=== PATIENT | female | born 1965 | race Caucasian/White ===

== ENCOUNTER 2018-03-27 16:00 | Outpatient (RCR) | payer OTHER, SELFPAY ==
--- NOTE | 2017-12-12 08:59 | HP.OTEVAL ---
Patient's Visit Information STAS VELASCO is a 52 year old F, referred to Occupational Therapy by MARY MOELLER, with a diagnosis of contusion of the L UE hand. Date of Evaluation: Occupational Therapist: Tresa Clifford, OTR/Luisa, CHT - Subjective Subjective: pt. states that she injured thumb at work 07/11/2017 and she never went to the ER for tx.Pt. reports that she used her hand to stop tools from moving at work and heard something snap. Pt. has two thumb braces that do not limit pain when pt. is completing functional tasks. Pt is on light duty at work and does not use L hand at work. - Pain L hand 5 Pain Intensity Range: 5, 6, 7, 8, 9, 10 - Objective Objective/Observation: thumb area is swollen, and OT noted that thumb area in L hand is larger than R hand - ROM MP: 0/32 L, 0/55 R PIP: -7/56 Left IP, -7/60 Right IP ROM Comments: with palpation of valg/marion stress on MP noted slight increase in ulner dev. - Strength [employer] Pl[employer]aker: 36 L, 60 R Lateral Pinch: 8 R, 3 L Tripod Pinch: 10 R, 1 L Strength Comments: pain was an 8 during lateral and tripod pinch - Nine Hole Peg Right: 20 sec. Left: 23 sec. - In-Hand Manipulation Finger to Palm Translation: Mild - Left Palm to Finger Translation: Mild - Left Comments: pt. 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 by completing strengthening exercises and stretches in order to complete BADL's and IADL's. Goal:: Patient will increase ROM in MP joint of L thumb by 10 degrees by completing strengthening and stretching exercises in order to complete BADL's and IADL's. Goal:: Patient will have decreased swelling and report overall decrease in pain of <5 in order to complete BADL's and IADL's. Goal:: Patient will improve lateral and tripod grasps by 5 lbs. by comlething strengthening and stretching exercises in order to complete BADL's and IADL's. Goal:: Patient will demonstrate knowledge and understanding of taping techniques or LR brace for support while performing lift or pinch tasks. - Rehabilitation General Assessment: Pt. presents with contusion of the L UE hand causing pt. to have decreased strength, ROM, increased pain/swelling and decreased ability to complete functional tasks at home and at work. Pt. reports that she is on light duty at work, meaning that she currently is only using her L hand. Today, US completed was completed to decrease pain and circulate blood flow around the thenar eminence and side of the thumb. OT also provided pt. with kinesiotape for stability surrounding the thumb. kinesiotape for stability, 6/10 pain after tx. Patient would benefit from OT services that target strengthening and increasing ROM in L thumb area, MT, and a strong focus on decreasing pain/swelling. Rehabilitation Potential: Good - Anticipated Interventions Anticipated Interventions: A/AAROM/PROM, Strengthening, Triggerpoint Release, Modalities, Orthoses, ADL Training - Visit Plan Frequency: 1-2x /Week Duration: 4 Weeks TEXT: Thank you for the opportunity to evaluate your patient. For Medicare and Medicare HMO plans, please review the plan of care and approve it. It will need to be FAXED BACK to us at [phone] for Medicare purposes. Please let me know if there are questions or concerns regarding this plan of care. Physician Signature: Date:
--- NOTE | 2018-06-03 14:51 | HP.OT.NRP ---
HP - Discharge Summary - Patient Information STAS VLEASCO was seen in my office for initial evaluation on . The following Plan of Care was established for this patient: Initial Frequency: 1-2x /Week Initial Duration: 4 Weeks Plan: PT to schedule FCE - Anticipated Interventions Anticipated Interventions: A/AAROM/PROM, Strengthening, Triggerpoint Release, Modalities, Orthoses, ADL Training This patient was last seen in our office 03/27/18. Pertinent comments regarding their Occupational therapy will appear below: Pt was seen for 15 therapy sessions. pt demo difficulty with thumb ROM and pain with tasks. Therapist challenged pt with work simulated tasks, and pt was advised to cont. using thumb brace as needed at work. pt was to have FCE and return to for further evaluation. At this time pt d/c due to timelapse in services. At this point I will be discontinuing this patient from occupational therapy. I would be happy to see this patient again in the future if found appropriate by the physician. Thank you! Tresa Clifford, OTR/L, CHT
== END 2018-03-27 19:00 | disposition home or self-care (01) ==
LOC: OT 16:00
DX: S60.012D Contusion of left thumb without damage to nail, subsequent encounter (principal)
CPT/HCPCS: 97035; 97110; 97140; 97166; 97530; 97760; 97763

== ENCOUNTER 2018-04-05 07:17 | Outpatient (RCR) | payer OTHER, SELFPAY ==
--- NOTE | 2018-04-05 13:32 | HP.OTFCE_ITS ---
HP OT Functional Capacity Eval - Task Lift Floor (Occasional 1-33% of Day): 20 Floor (Frequent 34-66% of Day): 15 Floor (Constant 67-100% of Day): negligible Floor PDL: Light Knee (Occasional 1-33% of Day): 30 Knee (Frequent 34-66% of Day): 20 Knee (Constant 67-100% of Day): 8 Knee PDL: Light Waist (Occasional 1-33% of Day): 20 Waist (Frequent 34-66% of Day): 15 Waist (Constant 67-100% of Day): negligible Waist PDL: Light Shoulder (Occasional 1-33% of Day): 20 Shoulder (Frequent 34-66% of Day): 15 Shoulder (Constant 67-100% of Day): negligible Shoulder PDL: Light Overhead (Occasional 1-33% of Day): 12.5 Overhead (Frequent 34-66% of Day): 10 Overhead (Constant 67-100% of Day): negligible Overhead PDL: Sedentary Comments: It was confirmed by calling Dr. Renee's office by speaking with nurse, [place], that it was okay to complete 4 hours for a one day functional capacity evaluation as opposed to a two-day functional capacity evaluation despite order saying 2 day evaluation. Completed all lifting tasks with right upper extremity only as per doctor no lifting with left hand. See below for further detials of materials handling tasks. - Work Activity/Posture Bending: Frequent Ability (34-66% of day) Squatting: Frequent Ability (34-66% of day) Kneeling: Occasional Ability (1-33% of day) Reaching out: Frequent Ability (34-66% of day) Reaching up: Frequent Ability (34-66% of day) Sitting: Frequent Ability (34-66% of day) Walking: Frequent Ability (34-66% of day) Standing: Frequent Ability (34-66% of day) - Reference Duration Sedentary Sedentary Light Light Light Medium Medium Medium Heavy Very Heavy Heavy Occasional (0-33% of day) Frequent (34-66% of day) Constant (67-100% of day) 10 # Negligible Negligible 15 # 8 # Negligible 20 # 10# Negli. 35 # 18 # 7 # 50 # 25 # 10 # 75 # 100 # >100 # 38 # 50 # >50 # 15 # 20 # >20 # - Patient Information Height: 1.52 m Weight:: 86.092 kg Hand Dominance: R BP (Medication Use/Usual Values per pt report): No - Medical History Medical History Including Restrictions: She is on light duty at this time for left upper extremity as well as is on a no lifting restirction for left hand. - Diagnoses Diagnoses: Current: Almaz was referred to evaluation due to L thumb contusion on July 11, 2017. She noted that she was examined at work and noted she felt a 'snap'. She noted that she x-ray a week after incidence. X-ray per Pt. report was noted to be bad sprain that was close to break. PMHx: - Symptoms Symptoms: Almaz's main symptoms are pain with edema and throbbing of left thumb. She noted pain is aggravated by cold in which she noted increases throbbing effect. She noted movements with left hand typically increase symptoms. - Pain Pain: Almaz noted that main symptoms she is experiencing left thumb pain with all movements. She noted that he gets cold and will turn purple, will swell regularly, and is painful from left thumb IP to [facility]. She has been attending occupational therapy session with certified hand therapist at [facility]. This therapist has made her splint o help manage pain at work. She uses a splint both at home and at work to promote stability for thumb and pain management while completing fine motor related tasks. She noted that she has two splints provided by therapists one forearm-based thumb spica and the second splint is a hand-based thumb spica. With use of functional pain scale, she rated her pain at 3/10 at beginning of session. As per questionnaire prior to starting therapy she noted pain ranges from 3-8/10 pain. She is not currently on pain medication and is using aleve to manage if needed. Quick Disabilities of Arm, Shoulder, and Hand Questionnaire (DASH): Score: 18 /55= 32% perceived disability of left hand. Connie Pain Questionnaire is a self-report pain assessment to determine a patient?s accurate psychodynamics for accurate pain rating. A score of 30 or high indicates poor psychodynamics and the greater probability of decreased accuracy with accurate pain reporting. . Pre- Connie: 8. Post Connie: 0. Decrease in pain noted between pre and post testing. Fear Avoidance Questionnaire (FAQ) is a client self-report assessment for 18-64+ that has shown to be reliable and valid for determining increased fear with movements. A score of 96 or higher indicates increased fear avoidance behaviors. FAQ Pre-testin. - physical activity subscale: 15. - work subscale: 30. FAQ Post testin. - physical activity subscale: 0. - work subscale: 0. Decrease in pain noted between pre and post testing. - Work History Work History: Almaz has worked at [employer] for approximately 8 years in June 2018. 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 Job description from employer based on job description of ?fastener racker? is worker needs to be able to lift to frequently lifting 25 lbs and occasionally lifting up to 60 lbs. She must occasionally lift 20 lbs above the shoulder and she is to be able to push pull cart that weight of 1800 lbs. She noted that she is currently not completing any lifting tasks as listed due to restrictions and fellow colleagues help with lifting tasks. Thumb injury has been ongoing for about nine months. - Behavioral Behavioral: Almaz was cooperative and participative with all tasks. She appeared to be apprehensive with some tasks as she exhibits hypersensitivity with left thumb and noted just touch or hitting thumb increases pain. - ADLS ADLS: Almaz lives in two story home with six steps to enter and one handrail to right side. She noted that once in home second floor is crafting area with about 20 steps to get to second level. She noted that bedroom and bathroom are all on first floor. She noted that laundry is also on first floor and they do not use basement. She continues to work full-time with splints at [employer] for 8 hour shifts for five days a week. She is still driving and completing daily tasks, cooking, and does help with caring for grandkids on weekends. - Physical Examination Physical Examination: The purpose of this functional capacity evaluation (FCE) which was completed on 04/05/18 was to determine Almaz Ramirez's physical ability. This FCE was performed as part of worker?s compensation to further determine Almaz's ability to complete her current full-time job at [employer]. She currently is on a no lifting restriction with her L thumb limiting the amount of weight and carrying ability for material handling related tasks. Material handling was completed with right upper extremity only at this time and measurements are listed. Aerobic limiting factor: 85% of max adjust HR= (220- age)*.85= 143.65. Calculated max weight: 60% of weight= 113.88 lbs. Resting diagnostics: Heart rate: 73 bpm. Oxygen saturation: 97%. Blood pressure: 157/98 mmHg ROM: Range of Motion testing: Upper extremity: Wrist. -Flexion: R 0-70 , L 0-71. -Extension: R 0-50 ,L 0-48. -Radial deviation: R 0-17 , L 0-16. -Ulnar deviation: R 0-32 , L 0-22. Hand. Thumb. -Radial adduction: R 0-47 , L 0- 37. -CMC opposition: R 0-31 ,L 0-19 - noted increased pulling in thumb. -MP : R -18-0- 65 , L 12- 52 - flexion only with inability to get actively to neut ral. -IP: R -18-0 58 ,L -12-0- 62 Strength: Manual muscle testing completed of the following to determine patient strength needed to complete job ? related tasks: Upper extremity: Shoulder: - Shoulder flexion: R 4+/5, L 4+/5. dynamometer: R 22.1 , L 25.5 lbs. - Shoulder extension: R 4+/5 , L 4+/5. dynamometer: R 14.9 lbs , L 12.5 lbs. - Shoulder Adduction: R 4+/5 , L 4+/5. dynamometer: R 20.4 lbs , L 18.9 lbs. - Shoulder Abduction: R 4+/5 , L 4+/5. dynamometer: R 27.5 , L 20 . 1 lbs. - Internal Rotation: R 4+/5 , L 4+/5. dynamometer: R 19.6 , L 17.8 lbs. - External Rotation: R 4+/5 , L 4+/5. dynamometer: R 16.0 , L 11.9. Elbow: - Elbow Flexion: R 4+/5 , L 4+/5. dynamometer 24.5, L 21.0 lbs. -Elbow Extension: R 4+/5 , L 4+/5. dynamometer: R 11.2, L 12.6 lbs. Wrist: -Wrist Flexion: R 4+/5 , L 4+/5. dynamometer: R 12.2, L 10.2. -Wrist extension: R 4+/5 , L 4+/5. dynamometer: R 16.8, L 14.2 lbs. Lower Extremity: Lower Body: Hip flexion: R 4+/5 , L 4+/5. Hip abduction: R 4+/5 , L 4+/5. Hip Adduction: R 4+/5 , L 4+/5. Knee extension: R 4+/5 , L 4+/5. Knee flexion: R 4+/5, L 4+/5. Ankle dorsiflexion: R 4+/5, L 4+/5. Ankle plantarflexion: R 4+/5, L 4+/5. Completed provocative testing of both shoulder of empty can and biceps load showing that joint integrity is good at this time. No pain with movements. Right District Leader Strength Average: 69.00 Right District Leader Strength Percentile: 78 Left District Leader Strength Average: 56.33 Left District Leader Strength Percentile: 67 Right Lateral Pinch Average: 17.66 Right Lateral Pinch Percentile: 90 Left Lateral Pinch Average: 10.00 Left Lateral Pinch Percentile: 25 Right Tripod Pinch Average: 15.66 Right Tripod Pinch Percentile: 90 Left Tripod Pinch Average: 9.66 Left Tripod Pinch Percentile: between 25th and below 50th Comments: Noted some pain at IP of Left thumb after pinch testing and noted some throbbing. No brace worn for all gold leaf gilder and pinch testing. Completed rapid gold leaf gilder exchange and results are as follows: R hand: 70 lbs. L hand: 45 lbs. 5 span gold leaf gilder testing completed: Position 1: R 46 ,L 45 lbs. Position 2: R 54 , L 41 lbs. Position 3: R 54 ,L 40 lbs. Position 4: R 44 ,L 36 lbs. Position 5: R 40 ,L 35 lbs Sensation: Sensory Testing: Sensation testing completed on bilateral hands with monofilament touch test. A score of normal on touch test is 1.65-2.83 and within normal range with just some discrepancies for light touch is between 3.22-3.61. The lower the number the increase in some hypersenesitivity potentially noted. The higher the number in more complications related to patient?s ability to pe rceive touch related sensory stimuli. Volar finger pads: R hand: 2nd 2.44 , 3rd 2.83 , 4th 2.44 , 5th 2.44 , thumb 2.44. L hand: 2nd 2.44 , 3rd 2.83 , 4th 2.36 , 5th 2.44 , thumb 2.44. Volar at distal phalanx: R hand: 2nd 2.83 , 3rd 2.36 , 4th 2.83 , 5th 2.83 , thumb 2.44. L hand: 2nd 2.36 , 3rd 2.83 , 4th 2.83 , 5th 2.83 , thumb 2.36. Fine Motor: Fine motor: Completed the Purdue Pegboard test in standing position with table top 37.5 inches from floor. Completed to further determine the patient?s ability to complete 2-3 step tasks, assess fine motor control, as well as determine her general dexterity to complete assembly like work. Three trials completed of each subsection. The results are as follows: Right Hand: - Trial 1: 17. - Trial 2: 16. - Trials 3: 17. - Average: 17. -Percentile: 35th. Left Hand: - Trial 1: 15. - Trial 2: 16. - Trials 3: 14. - Average: 15. -Percentile: 18th. Both Hands: - Trial 1: 13. - Trial 2: 9. - Trials 3: 12. - Average: 15. -Percentile: 4th. R+ L+ Both: - Trial 1: 45. - Trial 2: 41. - Trial 3: 43. - average:43. -percentile: 9th. Assembly: - Trial 1: 4. - Trial 2: 5. - Trials 3: 6. -Average: 5. -percentile: below first. Stoof during assessment to mimic work-related tasks. Stood for 15 mins and blood pressure was 151/98 mmHg, heart rate 78 bpm. SH enoted that she is nervous and that is why she believes her bllod pressure is a little high. Balance: Functional reach test is used to determine static balance in patients. A score of 15 is normal and less than 10 increases risk of falling. A score of 6 or less significantly increases a patient?s risk of falling. [place] 1: 15. [place] 2: 13. [place] 3: 14. Average: Functional Gait Assessment (FGA) is a dynamic balance test to determine vestibular functioning and general dynamic balance ability of patient 18-65+. This assessment can be used with clients of various backgrounds to determine functional dynamic balance needed to complete every day work related tasks. 1.Gait Level Surface: 2. 2.Change in Gait Speed: 3. 3.Gait with horizontal head turns:3. 4.Gait with vertical head turns:3. 5.Gait and pivot turn:3. 6.Step over obstacle:2. 7.Gait with narrow base of support: 3. 8.Gait with eyes closed: 3. 9.Ambulating Backwards: 3. Heartrate rep- stairs: 79 bpm. 10.Steps: 3. Total Score: 28/maximum score 30. This score classifies her at average amoung age related peers. Heart rate post stairs: 67 bpm. Blood pressure post FGA: 157/99 with automatic omron wrist cuff. - Non Material Handling Activities Bendinx, 10x in 20 seconds, and 10x faster in 15 seconds. Completed full bending with equal weightbearing into bilateral lower extremities. She exhibited good body mechanics and no pain in back of lower extremity. Some compensations of thoracic flexion noted. Movements do not aggravate symptoms of thumb. Squattinx, 10x in 16 seconds, and 10x faster in 19 seconds. After first set of 10 heart rate was at 127 bpm. After second set of 10 repetitions heart rate increased to 137 bpm. Oxygen saturation at 97% at room oxygen. She noted crepitus on right hip but noted no pain. She exhibited ability to complete full to 75% of full squat. As fatigue increased with repetitions she completed 75% of full squat. Body mechanics exhibited were fair and compensations of less range of motion noted with increased fatigue. No mechanical deficits observed but mechanical changes observed as increased compensations with fatigue. Kneelinx, 10x in 53 seconds, 10x repetitions for fast pace in 47 seconds. Mechanical changes and compensations observed. She can complete task with external support of right hand to floor to help push up and left forearm to knee. Unequal with distribution noted and increased lateral leaning to left side to move from kneel to upright position. She kneels to left lower extremity. Crepitus in left knee heard but no crepitus noted with palpation. No pain report by patient. Heart rate after 3x repetitions 115 bpm. Heart rate after 10x re petitions is 132 bpm but dropped standing for 30 seconds to 116 bpm. Heart rate after 10x faster repetitions 134 bpm. Heart rate dropped to 121 bpm after 15 seconds of standing and then 113 bpm after 30 seconds. Reaching out/up: Completed from standing position: Heart rate prior to starting is 112 bpm. Reaching out: 3x, 10x repetitions in 12 seconds, and then 10x repletion?s faster in 9 seconds. Good body mechanics; spine maintain in alignment. No mechanical deficits noted. Heart rate after 10x repetitions was 121 bpm. Heart rate after 10x repetitions faster was 115 bpm and dropped to 109 bpm after 5 second standing break. Completed from standing: Reaching up: 3x, 10x repetitions in 12 seconds, and the 10x faster in 9 seconds. Good body mechanics; spine maintain in alignment. No mechanical deficits noted. Heart rate after 10x repetitions was 115 bpm. Heart rate after 10x repetitions was 118 bpm and dropped to 113 in 3 seconds prior to continue task. Walking: Completed walking around facility and was observed to be safe and with good balance per functional reach test and functional gait assessment. She completed walk test on [place] treadmill at facility. Completed 15 mins at 3.0 mph with 5 minutes warm up to get to 3.0 mph speed and need to use handrails as had previously not used treadmill per Pt. report. She completed a total of 20 mins of walking. Completed without issues, no mechanical changes observed, and did note use of handrails was more because it would ' make me too nervous' to go without . Heartrate during walking at 7-minute gricelda on treadmill was at 128 bpm. Heart rate during walking at 16-minute gricelda on treadmill was at 138 bpm. Heart rate at end of 20 minutes walking test on treadmill was at 119 with oxygen saturation at 96%. Completed 100 yard walk test. 3 laps = 68 s. 4- 96.55 seconds. Heartrate at completion of fast walk test was 108 bpm. Standing: Able to complete standing for two hours during session without seated break while completing dynamic and static tasks. She is able to stand frequently throughout the day with appropriate posture and fair body mechanics. She noted that she typically is able to stand 8 hours prior to sitting and that she is ?often more comfortable standing than sitting?. Pain report 0/10 even with gripping of handraisl with bilateral hands during treadmill task. Sitting: Completed sitting tasks for 40 minutes without issue. She noted she prefers to stand as helps her back but noted 0/10 pain with sitting. Climbing Stairs: Almaz was able to complete one set of 10 stairs with use of alternating foot pattern and no handrails. She reports regularly completing stairs at home. - Dynamic Occasional Lifting Capacity Floor Lift: Completed unilateral lift with right upper extremity only; she has a no lifting restriction on left upper extremity as per doctor?s orders. Starting heart rate was 113 bpm. Occasional: 20 lbs. Frequent: 5x at 15 lbs. Completed with fair body mechanics. She was able to lift a 25 lbs plate with handle but increased compensations noted. She is able to complete 20 lbs with minimal compensations for occasional completion only. Completed unilateral lift only. Unequal weightbearing observed with lateral leaning to right side to complete lift. Heart rate 123 bpm and dropped to 111 within 15 seconds. Knee Lift: Completed unilateral lift with right upper extremity only; she has a no lifting restriction on left upper extremity as per doctor?s orders. Starting heart rate 113 bpm: Completed unilaterally with right upper extremity only. Slight mechanical changes with lateral leaning to right side to complete lift. Increased trunk extension noted with placement of box. She did maintain equal weighting to bilateral lower extremities for task. Completed with right hand: Occasionally: 30 lbs. frequently: 20 lbs. Ending Heart rate: 123 bpm Waist Lift: Completed unilateral lift with right upper extremity only; she has a no lifting restriction on left upper extremity as per doctor?s orders. Starting heart rate 117 bpm. Max weight of 25 lbs but increased compensations noted and should avoid lifting higher that 20 lbs. Occasional: 20 lbs. Frequently: 5x15 lbs. Noted discomfort in R hip and leg but noted pain. Pain report still 0/10. She exhibited equal weightbearing to bilateral lower extremities but decreased spinal alignment with mechanical changes of lateral leaning to right side for placement of box. Noted she typically completed this type of lift regularly with 11.6 lbs at work currently. Shoulder Lift: Completed unilateral lift with right upper extremity only; she has a no lifting restriction on left upper extremity as per doctor?s orders. Heart rate starting at 110 bpm. Occasional: 1x 20 lbs. Frequent: 5x 10 lbs. Completed with side handle of box. Completed with fair body mechanics. Started with equal weight bearing and then needed to lift off right lower extremity and shift weight to left lower extremity to complete placement of box. Mechanical changes and compensations noted with movements. Patient report no pain. Ending heart rate at 113 bpm. Overhead Lift: Completed unilateral lift with right upper extremity only; she has a no lifting restriction on left upper extremity as per doctor?s orders. Starting heart rate at 112 bpm. Right hand only: Occasional: 12.5 lbs. Frequently: 10 lbs. Completed lifting with fair body mechanics. Lifted free weight and plate weight with handle for overhead task. Able to complete milk crate with 10 lbs but decreased wrist alignment with milt crate and increased weight. She should limit need to complete high weight and slight compensations and mechanical changes of lateral leaning of trunk noted with hands and increased extension noted with wrist. Ending heart rate at 103 bpm. Carrying: Completed unilateral lift with right upper extremity only; she has a no lifting restriction on left upper extremity as per doctor?s orders. Occasional: 25 lbs. Frequent: 10 lbs. Completed unilateral carry to R side only due to left hand lifting restriction. Lateral leaning noted with left side with decreased spinal alignment and fair body mechanics. Slight antalgic gait noted with walking 20 feet to complete task. Reported no pain. Heart rate 128 and decreased to 109 within 20 seconds of standing. Comments: Push with platic rubbermaid cart on tile floor and with 1x hand and 170 lbs. Completed sleigh push with 1x hand on carpet with 160lbs with drag of carpet and sleigh. Increased compensation and mechanical changes noted when on carpet and Almaz needed to use left forearm to complete tasks. Tasks were discontinued when mechanical changes noted were unsafe. Heart rate at completion of task was 123 bpm dropped to 113 bpm within 5 seconds.
--- NOTE | 2018-04-05 13:32 | HP.OTFCE.D ---
FCE D/C Summary - Discharge STAS VELASCO was seen for a one time visit for an FCE on 04/05/18 and is discharged.
--- NOTE | 2018-04-05 14:36 | HP.OTFCE_ITS ---
HP OT Functional Capacity Eval - Task Lift Floor (Occasional 1-33% of Day): 20 Floor (Frequent 34-66% of Day): 15 Floor (Constant 67-100% of Day): negligible Floor PDL: Light Knee (Occasional 1-33% of Day): 30 Knee (Frequent 34-66% of Day): 20 Knee (Constant 67-100% of Day): 8 Knee PDL: Light Waist (Occasional 1-33% of Day): 20 Waist (Frequent 34-66% of Day): 15 Waist (Constant 67-100% of Day): negligible Waist PDL: Light Shoulder (Occasional 1-33% of Day): 20 Shoulder (Frequent 34-66% of Day): 15 Shoulder (Constant 67-100% of Day): negligible Shoulder PDL: Light Overhead (Occasional 1-33% of Day): 12.5 Overhead (Frequent 34-66% of Day): 10 Overhead (Constant 67-100% of Day): negligible Overhead PDL: Sedentary Comments: It was confirmed by calling Dr. Renee's office and speaking with his nurse, [place]ona, that it was ok to complete 4 hours for a one day functional capacity evaluation as opposed to a two-day functional capacity evaluation despite order saying 2 day evaluation. Completed all lifting tasks with right upper extremity only. All lifting tasks completed with right upper extremity only due to lifting restrictions. See below for further detials of materials handling tasks. - Work Activity/Posture Bending: Frequent Ability (34-66% of day) Squatting: Frequent Ability (34-66% of day) Kneeling: Occasional Ability (1-33% of day) Reaching out: Frequent Ability (34-66% of day) Reaching up: Frequent Ability (34-66% of day) Sitting: Frequent Ability (34-66% of day) Walking: Frequent Ability (34-66% of day) Standing: Frequent Ability (34-66% of day) - Reference Duration Sedentary Sedentary Light Light Light Medium Medium Medium Heavy Very Heavy Heavy Occasional (0-33% of day) Frequent (34-66% of day) Constant (67-100% of day) 10 # Negligible Negligible 15 # 8 # Negligible 20 # 10# Negli. 35 # 18 # 7 # 50 # 25 # 10 # 75 # 100 # >100 # 38 # 50 # >50 # 15 # 20 # >20 # - Patient Information Height: 1.52 m Weight:: 86.092 kg Hand Dominance: R BP (Medication Use/Usual Values per pt report): No - Medical History Medical History Including Restrictions: She is on light duty at this time for left upper extremity as well as is on a no lifting restirction for left hand. - Diagnoses Diagnoses: Current: Almaz was referred to evaluation due to L thumb contusion on July 11, 2017. She noted that she was examined at work and noted she felt a 'snap'. She noted that she x-ray a week after incidence. X-ray per Pt. report was noted to be bad sprain that was close to break. - Symptoms Symptoms: Almaz's main symptoms are pain with edema and throbbing of left thumb. She noted pain is aggravated by cold in which she noted increases throbbing effect. She noted movements with left hand typically increase symptoms. - Pain Pain: Almaz noted that main symptoms she is experiencing left thumb pain with all movements. She noted that he gets cold and will turn purple, will swell regularly, and is painful from left thumb IP to [facility]. She has been attending occupational therapy session with certified hand therapist at [facility]. This therapist has made her splint o help manage pain at work. She uses a splint both at home and at work to promote stability for thumb and pain management while completing fine motor related tasks. She noted that she has two splints provided by therapists one forearm-based thumb spica and the second splint is a hand-based thumb spica. With use of functional pain scale, she rated her pain at 3/10 at beginning of session. As per questionnaire prior to starting therapy she noted pain ranges from 3-8/10 pain. She is not currently on pain medication and is using aleve to manage if needed. Quick Disabilities of Arm, Shoulder, and Hand Questionnaire (DASH): Score: 18 /55= 32% perceived disability of left hand. Connie Pain Questionnaire is a self-report pain assessment to determine a patient?s accurate psychodynamics for accurate pain rating. A score of 30 or high indicates poor psychodynamics and the greater probability of decreased accuracy with accurate pain reporting. . Pre- Connie: 8. Post Connie: 0. Decrease in pain noted between pre and post testing. Fear Avoidance Questionnaire (FAQ) is a client self-report assessment for 18-64+ that has shown to be reliable and valid for determining increased fear with movements. A score of 96 or higher indicates increased fear avoidance behaviors. FAQ Pre-testin. - physical activity subscale: 15. - work subscale: 30. FAQ Post testin. - physical activity subscale: 0. - work subscale: 0. Decrease in pain noted between pre and post testing. - Work History Work History: Almaz has worked at [employer] for approximately 8 years in June 2018. 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 Job description from employer based on job description of ?fastener racker? is worker needs to be able to lift to frequently lifting 25 lbs and occasionally lifting up to 60 lbs. She must occasionally lift 20 lbs above the shoulder and she is to be able to push pull cart that weight of 1800 lbs. She noted that she is currently not completing any lifting tasks as listed due to restrictions and fellow colleagues help with lifting tasks. Thumb injury has been ongoing for about nine months. - Behavioral Behavioral: Almaz was cooperative and participative with all tasks. She appeared to be apprehensive with some tasks as she exhibits hypersensitivity with left thumb and noted just touch or hitting thumb increases pain. - ADLS ADLS: Almaz lives in two story home with six steps to enter and one handrail to right side. She noted that once in home second floor is crafting area with about 20 steps to get to second level. She noted that bedroom and bathroom are all on first floor. She noted that laundry is also on first floor and they do not use basement. She continues to work full-time with splints at [employer] for 8 hour shifts for five days a week. She is still driving and completing daily tasks, cooking, and does help with caring for grandkids on weekends. - Physical Examination Physical Examination: The purpose of this functional capacity evaluation (FCE) which was completed on 04/05/18 was to determine Almaz Ramirez's physical ability. This FCE was performed as part of worker?s compensation to further determine Almaz's ability to complete her current full-time job at [employer]. She currently is on a no lifting restriction with her L thumb limiting the amount of weight and carrying ability for material handling related tasks. Material handling was completed with right upper extremity only at this time and measurements are listed. Aerobic limiting factor: 85% of max adjust HR= (220- age)*.85= 143.65. Calculated max weight: 60% of weight= 113.88 lbs. Resting diagnostics: Heart rate: 73 bpm. Oxygen saturation: 97%. Blood pressure: 157/98 mmHg ROM: Range of Motion testing: Upper extremity: Wrist. -Flexion: R 0-70 , L 0-71. -Extension: R 0-50 ,L 0-48. -Radial deviation: R 0-17 , L 0-16. -Ulnar deviation: R 0-32 , L 0-22. Hand. Thumb. -Radial adduction: R 0-47 , L 0- 37. -CMC opposition: R 0-31 ,L 0-19 - noted increased pulling in thumb. -MP : R -18-0- 65 , L 12- 52 - flexion only with inability to get actively to neutral. -IP: R -18-0 58 ,L -12-0- 62 Strength: Manual muscle testing completed of the following to determine patient strength needed to complete job ? related tasks: Upper extremity: Shoulder: - Shoulder flexion: R 4+/5, L 4+/5. dynamometer: R 22.1 , L 25.5 lbs. - Shoulder extension: R 4+/5 , L 4+/5. dynamometer: R 14.9 lbs , L 12.5 lbs. - Shoulder Adduction: R 4+/5 , L 4+/5. dynamometer: R 20.4 lbs , L 18.9 lbs. - Shoulder Abduction: R 4+/5 , L 4+/5. dynamometer: R 27.5 , L 20 . 1 lbs. - Internal Rotation: R 4+/5 , L 4+/5. dynamometer: R 19.6 , L 17.8 lbs. - External Rotation: R 4+/5 , L 4+/5. dynamometer: R 16.0 , L 11.9. Elbow: - Elbow Flexion: R 4+/5 , L 4+/5. dynamometer 24.5, L 21.0 lbs. -Elbow Extension: R 4+/5 , L 4+/5. dynamometer: R 11.2, L 12.6 lbs. Wrist: -Wrist Flexion: R 4+/5 , L 4+/5. dynamometer: R 12.2, L 10.2. -Wrist extension: R 4+/5 , L 4+/5. dynamometer: R 16.8, L 14.2 lbs. Lower Extremity: Lower Body: Hip flexion: R 4+/5 , L 4+/5. Hip abduction: R 4+/5 , L 4+/5. Hip Adduction: R 4+/5 , L 4+/5. Knee extension: R 4+/5 , L 4+/5. Knee flexion: R 4+/5, L 4+/5. Ankle dorsiflexion: R 4+/5, L 4+/5. Ankle plantarflexion: R 4+/5, L 4+/5. Completed provocative testing of both shoulder of empty can and biceps load showing that joint integrity is good at this time. No pain with movements. Right Biomedical Equipment Specialist Strength Average: 69.00 Right Biomedical Equipment Specialist Strength Percentile: 78 Left Biomedical Equipment Specialist Strength Average: 56.33 Left Biomedical Equipment Specialist Strength Percentile: 67 Right Lateral Pinch Average: 17.66 Right Lateral Pinch Percentile: 90 Left Lateral Pinch Average: 10.00 Left Lateral Pinch Percentile: 25 Right Tripod Pinch Average: 15.66 Right Tripod Pinch Percentile: 90 Left Tripod Pinch Average: 9.66 Left Tripod Pinch Percentile: between 25th and below 50th Comments: All water treatment technician and fine motor testing complete with no splint. Almaz did have splints at session if needed. Noted hand based splint was tight around IP of left thumb. This was observed to be true. Educated to wear often brace for work tasks as needed until swelling subsides. Edema noted around distal phalanx of left thumb and circumferential measurements as follows: Right thumb as d istal phalanx: 6.5 cm. Left thumb as distal phalanx: 6.8 cm. Noted some pain at IP of Left thumb after pinch testing and noted some throbbing. No brace worn for all water treatment technician and pinch testing. Completed rapid water treatment technician exchange and results are as follows: R hand: 70 lbs. L hand: 45 lbs. 5 span water treatment technician testing completed: Position 1: R 46 ,L 45 lbs. Position 2: R 54 , L 41 lbs. Position 3: R 54 ,L 40 lbs. Position 4: R 44 ,L 36 lbs. Position 5: R 40 ,L 35 lbs Sensation: Sensory Testing: Sensation testing completed on bilateral hands with monofilament touch test. A score of normal on touch test is 1.65-2.83 and within normal range with just some discrepancies for light touch is between 3.22-3.61. The lower the number the increase in some hypersenesitivity potentially noted. The higher the number in more complications related to patient?s ability to perceive touch related sensory stimuli. Volar finger pads: R hand: 2nd 2.44 , 3rd 2.83 , 4th 2.44 , 5th 2.44 , thumb 2.44. L hand: 2nd 2.44 , 3rd 2.83 , 4th 2.36 , 5th 2.44 , thumb 2.44. Volar at distal phalanx: R hand: 2nd 2.83 , 3rd 2.36 , 4th 2.83 , 5th 2.83 , thumb 2.44. L hand: 2nd 2.36 , 3rd 2.83 , 4th 2.83 , 5th 2.83 , thumb 2.36. Fine Motor: Fine motor: Completed the Purdue Pegboard test in standing position with table top 37.5 inches from floor. Completed to further determine the patient?s ability to complete 2-3 step tasks, assess fine motor control, as well as determine her general dexterity to complete assembly like work. Three trials completed of each subsection. The results are as follows: Right Hand: - Trial 1: 17. - Trial 2: 16. - Trials 3: 17. - Average: 17. -Percentile: 35th. Left Hand: - Trial 1: 15. - Trial 2: 16. - Trials 3: 14. - Average: 15. - Percentile: 18th. Both Hands: - Trial 1: 13. - Trial 2: 9. - Trials 3: 12. - Average: 15. -Percentile: 4th. R+ L+ Both: - Trial 1: 45. - Trial 2: 41. - Trial 3: 43. - average:43. -percentile: 9th. Assembly: - Trial 1: 4. - Trial 2: 5. - Trials 3: 6. -Average: 5. -percentile: below first. Stood during assessment to mimic work-related tasks. Stood for 15 mins and blood pressure was 151/98 mmHg, heart rate 78 bpm. She noted that she is nervous and that is why she believes her blood pressure is a little high. Balance: Functional reach test is used to determine static balance in patients. A score of 15 is normal and less than 10 increases risk of falling. A score of 6 or less significantly increases a patient?s risk of falling. [place] 1: 15. Hollywood 2: 13. [place] 3: 14. Average: Functional Gait Assessment (FGA) is a dynamic balance test to determine vestibular functioning and general dynamic balance ability of patient 18-65+. This assessment can be used with clients of various backgrounds to determine functional dynamic balance needed to complete every day work related tasks. 1.Gait Level Surface: 2. 2.Change in Gait Speed: 3. 3.Gait with horizontal head turns:3. 4.Gait with vertical head turns:3. 5.Gait and pivot turn:3. 6.Step over obstacle:2. 7.Gait with narrow base of support: 3. 8.Gait with eyes closed: 3. 9.Ambulating Backwards: 3. Heartrate rep- stairs: 79 bpm. 10.Steps: 3. Total Score: 28/maximum score 30. This score classifies her at average among age related peers. Heart rate post stairs: 67 bpm. Blood pressure post FGA: 157/99 with automatic omron wrist cuff. - Non Material Handling Activities Bendinx, 10x in 20 seconds, and 10x faster in 15 seconds. Completed full bending with equal weightbearing into bilateral lower extremities. She exhibited good body mechanics and no pain in back of lower extremity. Some compensations o f thoracic flexion noted. Movements do not aggravate symptoms of thumb. Squattinx, 10x in 16 seconds, and 10x faster in 19 seconds. After first set of 10 heart rate was at 127 bpm. After second set of 10 repetitions heart rate increased to 137 bpm. Oxygen saturation at 97% at room oxygen. She noted crepitus on right hip but noted no pain. She exhibited ability to complete full to 75% of full squat. As fatigue increased with repetitions she completed 75% of full squat. Body mechanics exhibited were fair and compensations of less range of motion noted with increased fatigue. No mechanical deficits observed but mechanical changes observed as increased compensations with fatigue. Kneelinx, 10x in 53 seconds, 10x repetitions for fast pace in 47 seconds. Mechanical changes and compensations observed. She can complete task with external support of right hand to floor to help push up and left forearm to knee. Unequal with distribution noted and increased lateral leaning to left side to move from kneel to upright position. She kneels to left lower extremity. Crepitus in left knee heard but no crepitus noted with palpation. No pain report by patient. Heart rate after 3x repetitions 115 bpm. Heart rate after 10x repetitions is 132 bpm but dropped standing for 30 seconds to 116 bpm. Heart rate after 10x faster repetitions 134 bpm. Heart rate dropped to 121 bpm after 15 seconds of standing and then 113 bpm after 30 seconds. Reaching out/up: Completed from standing position: Heart rate prior to starting is 112 bpm. Reaching out: 3x, 10x repetitions in 12 seconds, and then 10x repletion?s faster in 9 seconds. Good body mechanics; spine maintain in alignment. No mechanical deficits noted. Heart rate after 10x repetitions was 121 bpm. Heart rate after 10x repetitions faster was 115 bpm and dropped to 109 bpm after 5 second standing break. Completed from standing: Reaching up: 3x, 10x repetitions in 12 seconds, and the 10x faster in 9 seconds. Good body mechanics; spine maintain in alignment. No mechanical deficits noted. Heart rate after 10x repetitions was 115 bpm. Heart rate after 10x repetitions was 118 bpm and dropped to 113 in 3 seconds prior to continue task. Walking: Completed walking around facility and was observed to be safe and with good balance per functional reach test and functional gait assessment. She completed walk test on [place] treadmill at facility. Completed 15 mins at 3.0 mph with 5 minutes warm up to get to 3.0 mph speed and need to use handrails as had previously not used treadmill per Pt. report. She completed a total of 20 mins of walking. Completed without issues, no mechanical changes observed, and did note use of handrails was more because it would ' make me too nervous' to go without . Heartrate during walking at 7-minute gricelda on treadmill was at 128 bpm. Heart rate during walking at 16-minute gricelda on treadmill was at 138 bpm. Heart rate at end of 20 minutes walking test on treadmill was at 119 with oxygen saturation at 96%. Completed 100 yard walk test. 3 laps = 68 s. 4- 96.55 seconds. Heartrate at completion of fast walk test was 108 bpm. Standing: Able to complete standing for two hours during session without seated break while completing dynamic and static tasks. She is able to stand frequently throughout the day with appropriate posture and fair body mechanics. She noted that she typically is able to stand 8 hours prior to sitting and that she is ?often more comfortable standing than sitting?. Pain report 0/10 even with gripping of handraisl with bilateral hands during treadmill task. Sitting: Completed sitting tasks for 40 minutes without issue. She noted she prefers to stand as helps her back but noted 0/10 pain with sitting. Climbing Stairs: Almaz was able to complete one set of 10 stairs with use of alternating foot pattern and no handrails. She reports regularly completing stairs at home. - Dynamic Occasional Lifting Capacity Floor Lift: Completed unilateral lift with right upper extremity only; she has a no lifting restriction on left upper extremity as per doctor?s orders. Starting heart rate was 113 bpm. Occasional: 20 lbs. Frequent: 5x at 15 lbs. Completed with fair body mechanics. She was able to lift a 25 lbs plate with handle but increased compensations noted. She is able to complete 20 lbs with minimal compensations for occasional completion only. Completed unilateral lift only. Unequal weightbearing observed with lateral leaning to right side to complete lift. Heart rate 123 bpm and dropped to 111 within 15 seconds. Knee Lift: Completed unilateral lift with right upper extremity only; she has a no lifting restriction on left upper extremity as per doctor?s orders. Starting heart rate 113 bpm: Completed unilaterally with right upper extremity only. Slight mechanical changes with lateral leaning to right side to complete lift. Increased trunk extension noted with placement of box. She did maintain equal weighting to bilateral lower extremities for task. Completed with right hand: Occasionally: 30 lbs. frequently: 20 lbs. Ending Heart rate: 123 bpm Waist Lift: Completed unilateral lift with right upper extremity only; she has a no lifting restriction on left upper extremity as per doctor?s orders. Starting heart rate 117 bpm. Max weight of 25 lbs but increased compensations noted and should avoid lifting higher that 20 lbs. Occasional: 20 lbs. Frequently: 5x15 lbs. Noted discomfort in R hip and leg but noted pain. Pain report still 0/10. She exhibited equal weightbearing to bilateral lower extremities but decreased spinal alignment with mechanical changes of lateral leaning to right side for placement of box. Noted she typically completed this type of lift regularly with 11.6 lbs at work currently. Shoulder Lift: Completed unilateral lift with right upper extremity only; she has a no lifting restriction on left upper extremity as per doctor?s orders. Heart rate starting at 110 bpm. Occasional: 1x 20 lbs. Frequent: 5x 10 lbs. Completed with side handle of box. Completed with fair body mechanics. Started with equal weight bearing and then needed to lift off right lower extremity and shift weight to left lower extremity to complete placement of box. Mechanical changes and compensations noted with movements. Patient report no pain. Ending heart rate at 113 bpm. Overhead Lift: Completed unilateral lift with right upper extremity only; she has a no lifting restriction on left upper extremity as per doctor?s orders. Starting heart rate at 112 bpm. Right hand only: Occasional: 12.5 lbs. Frequently: 10 lbs. Completed lifting with fair body mechanics. Lifted free weight and plate weight with handle for overhead task. Able to complete milk crate with 10 lbs but decreased wrist alignment with milt crate and increased weight. She should limit need to complete high weight and slight compensations and mechanical changes of lateral leaning of trunk noted with hands and increased extension noted with wrist. Ending heart rate at 103 bpm. Carrying: Completed unilateral lift with right upper extremity only; she has a no lifting restriction on left upper extremity as per doctor?s orders. Occasional: 25 lbs. Frequent: 10 lbs. Completed unilateral carry to R side only due to left hand lifting restriction. Lateral leaning noted with left side with decreased spinal alignment and fair body mechanics. Slight antalgic gait noted with walking 20 feet to complete task. Reported no pain. Heart rate 128 and decreased to 109 within 20 seconds of standing. Comments: Push with platic rubbermaid cart on tile floor and with 1x hand and 170 lbs. Completed sleigh push with 1x hand on carpet with 160lbs with drag of carpet and sleigh. Increased compensation and mechanical changes noted when on carpet and Almaz needed to use left forearm to complete tasks. Tasks were discontinued when mechanical changes noted were unsafe. Heart rate at completion of task was 123 bpm dropped to 113 bpm within 5 seconds. Ending diagnostics: Blood pressure: 135/95 mmHg with Omron automated wrist cuff. Heart rate: 84 bpm
--- NOTE | 2018-04-11 14:30 | HP.OTCOM ---
OT Communication Note 04/11/[address] MARY MOELLER Physical Demand Job Description requirements (percentage) Patient Abilities (percentage) Calculation Physical Demands in a Percentage Job Demands Match Grasping Frequent 100 Pinching Frequent Fine Motor Coordination Frequent Above shoulder Lifting Occasional {20 lbs} Occasional {12.5} Reaching out Frequent frequent Match Bending Frequent Frequent Match Squatting Frequent frequent Match Kneel Frequent occasional Total Standing requirements Standing at one-time requirements Sincerely, Vane Franco Contact Information
--- NOTE | 2018-04-11 17:54 | HP.OTCOM ---
OT Communication Note 04/11/[address] 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 100% 100% Simple Pinching 66% 66% ? 100% 100% Fine Motor Coordination 66% 66% ? 100% 100% Above shoulder reaching 66% 66% ? 100% 100% Reaching out 66% 66% ? 100% 100% Bending 66% 66% ? 100% 100% Squatting 66% 66% ? 100% 100% Kneeling 66% 33% ? 50% 50% Static balance 66% 66% ? 100% 100% Dynamic Balance 66% 66% ? 100% 100% Total Standing requirements 66% 66% ? 100% 100% Physical Demand: Material Handling Physical Demands in a Pounds Calculation Patient Abilities (pounds) Job Demands Match Occasional Squat Life (Floor to Waist) 60 LBS ? 20 LBS 30 % Frequent Squat Life (floor to waist) 25 LBS ? 15 LBS 60% Occasional Overhead lift 20 LBS ? 12.5 62% Occasional Push 1800 LBS ? 160 11% Occasional Pull 1800 LBS ? 160 11% Total Job demand match: 80% Sincerely, Vane Franco, OTR/L Contact Information
--- NOTE | 2018-04-12 07:30 | HP.OTCOM_ITS ---
OT Communication Note 04/12/[address] 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 100% 100% Simple Pinching 66% 66% ? 100% 100% Fine Motor Coordination 66% 66% ? 100% 100% Above shoulder reaching 66% 66% ? 100% 100% Reaching out 66% 66% ? 100% 100% Bending 66% 66% ? 100% 100% Squatting 66% 66% ? 100% 100% Kneeling 66% 33% ? 50% 50% Static balance 66% 66% ? 100% 100% Dynamic Balance 66% 66% ? 100% 100% Standing 66% 66% ? 100% 100% Walking 66% 66% ? 100% 100% Non-Material Handling Match: 95% Physical Demand: Material Handling Patient Abilities (pounds) Calculation Physical Demands in a Pounds Job Demands Match Occasional Squat Life (Floor to Waist) 60 LBS ? 20 LBS 30 % Frequent Squat Life (floor to waist) 25 LBS ? 15 LBS 60% Occasional Power Squat (knee to waist) 60 LBS ? 30 LBS 50% Frequent Dukes Squat (knee to waist) 25 LBS ? 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 Repetitive single arm lifting increases the risk of further musculoskeletal related injuries if not completing with good body mechanics. This should be kept to minimum at this time to minimize compensations as appropriate to ensure option ergonomics. Sincerely, Vane Franco, OTR/L Contact Information
== END 2018-04-05 19:00 | disposition home or self-care (01) ==
LOC: OT 07:17
DX: S60.012D Contusion of left thumb without damage to nail, subsequent encounter (principal)
CPT/HCPCS: 97750

== ENCOUNTER 2023-09-11 11:48 | Outpatient (RCR) | payer OTHER, SELFPAY ==
--- NOTE | 2023-09-11 16:10 | HP.FCE ---
Task Lift Floor (Occasional 1-33% of Day): 0 Floor (Frequent 34-66% of Day): 0 Floor (Constant 67-100% of Day): 0 Floor PDL: No Ability Knee (Occasional 1-33% of Day): 0 Knee (Frequent 34-66% of Day): 0 Knee (Constant 67-100% of Day): 0 Knee PDL: No Ability Waist (Occasional 1-33% of Day): 15 Waist (Frequent 34-66% of Day): 7.5 Waist (Constant 67-100% of Day): 3.15 Waist PDL: Sedentary-Light Shoulder (Occasional 1-33% of Day): 0 Shoulder (Frequent 34-66% of Day): 0 Shoulder (Constant 67-100% of Day): 0 Shoulder PDL: No Ability Overhead (Occasional 1-33% of Day): 0 Overhead (Frequent 34-66% of Day): 0 Overhead (Constant 67-100% of Day): 0 Overhead PDL: No Ability Comments: unable to lift empty box for completion of floor, knee, shoulder and overhead lifts. able to complete waist lift empty box only. labored breathing with each lift reports unable due to pain and decreased strength Work Activity/Posture Bending: Frequent Ability (34-66% of day) Squatting: Frequent Ability (34-66% of day) Kneeling: Frequent Ability (34-66% of day) Reaching out: Frequent Ability (34-66% of day) Reaching up: Frequent Ability (34-66% of day) Sitting: Constant Ability (67-100% of day) Walking: Frequent Ability (34-66% of day) Standing: Frequent Ability (34-66% of day) Reference Reference: Duration Sedentary Sedentary Light Light Light Medium Medium Medium Heavy Very Heavy Heavy Occasional (0-33% of day) Frequent (34-66% of day) Constant (67-100% of day) 10 # Negligible Negligible 15 # 8 # Negligible 20 # 10# Negli. 35 # 18 # 7 # 50 # 25 # 10 # 75 # 100 # >100 # 38 # 50 # >50 # 15 # 20 # >20 # Patient Information Height: 5 ft 1 in Weight:: 165 kg Hand Dominance: R Medical History Medical History Including Restrictions: Pt originally with sx to [facility] nov after fx plate and screw placed fusion to MP joint of thumb. pt working in 2022 and heard a pop thumb no longer in place requiring second surgery [facility] arthroplasty Mar 21 2023. Pt not with limitations in ability to grasp and puick up heavy items unable to wrap thumb around digits duie to fusion and stiffness. pt reports arthritis of knees for long time limiting function as well. Diagnoses Diagnoses: arthrtis of carpometacarpal joint of thumb L M18.12 Symptoms Symptoms: stiffness pain at thenar eminance limited AROM/PROM and strength occ tingling sensativity to dorsal aspect of thumb at MP joint Pain Pain: pain at thenar region 8/10 pt does not complete the Connie Questionnaire properly therefore unable to accurately score and include in FCE assessment see attachment for questionnaire Work History Work History: Was working at [employer] approx 3 years. Previously pt was working at [employer] where initial injury occurred for 13 years. Behavioral Behavioral: calm and cooperative ADLS ADLS: Pt will I in self care however states she struggles with it takes increased time to complete does report she needs assistance with management of fasners on clothing. Pt lives with and mother in private home with 6 stairs to enter hand rail on R side. Pt bed and bath is on second floor 15 steps to go up no railing. pt bathroom t/s combo no grab bars standard commode no bars. Physical Examination Physical Examination: arrives walks to back of OT room no need for AD labored breathing with sustained standing tasks resting HR 72 bpm and 02 at 97% ROM: shoulder, elbow wrist and forearm WFL R hand WFL L hand thumb: [facility]: 30/ 30 MP joint unable to move due to fusion DIP 0/43 able to oppose to D2 and D3 unable to oppose to D4 and D5 BLE WFL Strength: L shoulder flexion 9.1# R shoulder flexion 20.4# L tricep 9.8# R tricep 9.1# L bicep 13.1# R bicep 17.7# LLE hip flexor 17.5# RLE hip flexor 16.7# L quad 21.1# R quad 19.3# L hamstring 22.7# R hamstring 13.8# measured with Peak Force Right Form Setter Supervisor Strength Average: 58.33 Right Form Setter Supervisor Strength Percentile: 67th percentile Left Form Setter Supervisor Strength Average: 15.00 Left Form Setter Supervisor Strength Percentile: 46th percentile Right Lateral Pinch Average: 8.66 Right Lateral Pinch Percentile: 10th percentile Left Lateral Pinch Average: 1.66 Left Lateral Pinch Percentile: <10th percentile Right Tripod Pinch Average: 10.00 Right Tripod Pinch Percentile: 25th percentile Left Tripod Pinch Average: 0 Left Tripod Pinch Percentile: <10th percentile Comments: pt experiencing pain with lateral as well as tripod pinch strength testing L hand Sensation: denies Fine Motor: 9 hole peg assessment: L hand: 43 sec L hand: 37 sec L hand: 34 sec AVERAGE: 38 sec <0th percentile for age and gender R hand 22 sec R hand 19 sec R hand 19 sec inbetween 50-75% for agre and gender Balance: standing forward reach 12 low risk for falls average for age is 13.81 Non Material Handling Activities Bending: bending 3/3 bending at own pace 10/10 HR 95 bpm 02 98% fast 10/10 HR 105 bpm 02 98% no pain wide [id number] no support from external force during bending task needed Squatting: squat 3/3 squat at own pace 10/10 HR 100 bpm 02 98% squat fast 10/10 with external support HR 113 bpm 02 98% proper squat form no need for support with 3/3 and own pace trials external support for as fast as possible trial with increased SOB denies pain Kneeling: kneel 3/3 kneeling at own pace 10/10 external support of chair HR 113 bpm 02 98% kneeling fast 10/10 external support of chair HR 113 bpm and 02 98% winded with leg shaking due to fatigue denies pain Reaching out/up: reaching out 3/3 reaching out own pace 10/10 reaching out fast 10/10 HR 98 bpm and HR 98% reaching up 3/3 reaching up at own pace 10/10 reaching up fast 10/10 HR 110 bpm 02 99% no pain Walking: walks from waiting room to OT room from OT section around gym x5 laps and back to seat --- 1,806 feet total HR 117 bpm 02 93% SOB and RB needed after walk Standing: standing duration approx 30 min dynamic during walking, lift and stair portion of FCE pt reports 30 min Sitting: per pt approx 4 hours is able to sit for duration of intake of history and strength testing Climbing Stairs: able to complete flight of steps (10) holding onto hand rail reciprocal pattern on way up and step to pattern to descend. denies pain Dynamic Occasional Lifting Capacity Floor Lift: unable to lift box to table top due to pain in L hand as well as pain in knees HR 112 bpm 02 97% Knee Lift: unable to fully bring to table top able to lift part of way then has to set back down due to L hand pain and knee pain HR 114 bpm 02 97% Waist Lift: waist lift able to lift box (15#) unable to lift any more HR 91 bpm 02 97% back arch slight compensation noted during lift Shoulder Lift: attempts however unable to bring box on top of second for completion of shoulder lift due to hand pain and weakness Overhead Lift: unable due to hand pain and weakness pt rates hand pain as 6/10 after lifting portion of assessment Carrying: carries empty box senior care across the room unable to complete therapist takes box from pt makes it 14 feet HR 98 bpm 02 97%
== END 2023-09-11 19:00 | disposition home or self-care (01) ==
LOC: OT 11:48
DX: M18.12 Unilateral primary osteoarthritis of first carpometacarpal joint, left hand (principal)
CPT/HCPCS: 97750